=== PATIENT | male | born 1985 ===

== ENCOUNTER 2020-05-27 12:03 | Emergency (ER) | payer BC ==
--- NOTE | 2020-05-27 12:50 | CR ---
EXAMINATION: Fingers Fourth Digit Lt 3 views SEX: Male AGE: 34 years CLINICAL HISTORY: 34-year-old male "smashed" fourth (ring) finger at work. INTERPRETATION: Abnormal. 1. Mild soft tissue swelling. 2. *Acute, nondisplaced, corner FRACTURE radial aspect base of the distal phalanx, left fourth (4th) finger. Fracture line does not appear to extend into the adjacent DIP joint. 3. No sign of other fracture or dislocation this or adjacent digits of the left hand. 4. No foreign bodies. 5. No appreciable arthritic degenerative changes.
[2020-05-27] MEDS ORDERED: Diphtheria,Pertussis(Acell),Tetanus Vaccine 0.5 ML Syringe IM ONE (12:59)
--- NOTE | 2020-05-27 13:05 | EDM.PDOC ---
ED HPI GENERAL MEDICAL PROBLEM - General Chief Complaint: Upper Extremity Injury/Pain Stated Complaint: SMASHED FINGER AT WORK Time Seen by Provider: 05/27/20 12:55 Source of Information: Reports: Patient, RN, RN Notes Reviewed History Limitations: Reports: No Limitations - History of Present Illness INITIAL COMMENTS - FREE TEXT/NARRATIVE: Patient presents to the ED via personal vehicle with complaints of injury to his left, fourth digit. 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 He denies loss of motor or sensory function to the area. He has not taken any medications for the pain which he rates at a 5/10. Left Finger-Ring Pain Score (Numeric/FACES): 3 - Related Data Allergies Allergy/AdvReac Type Severity Reaction Status Date / Time No Known Allergies Allergy Verified 05/27/20 12:52 Home Meds: Home Meds . [No Known Home Meds] 05/27/20 [History] Social & Family History - Tobacco Use Tobacco Use Status *Q: Never Tobacco User - Caffeine Use Caffeine Use: Reports: Coffee - Recreational Drug Use Recreational Drug Use: No Review of Systems - Review of Systems Review Of Systems: Comprehensive ROS is negative, except as noted in HPI. ED EXAM, GENERAL - Physical Exam Exam: See Below Exam Limited By: No Limitations General Appearance: Alert, Anxious, Mild Distress Peripheral Pulses: 2+: Radial (L), Radial (R) Extremities: Normal Range of Motion, Normal Capillary Refill, Limited Range of Motion, Other (Pain to left fourth finger). No: Joint Swelling Neurological: Alert, Oriented, CN II-XII Intact, Normal Cognition, Normal Gait, No Motor/Sensory Deficits Psychiatric: Normal Affect, Anxious Skin Exam: Warm, Dry, Intact, Normal Color, No Rash, Erythema (To distal left fourth finger), Wound/Incision (4 cm superficial laceration to lateral aspect of left fourth finger). No: Ecchymosis, Mottled, Pallor, Petechiae ED TRAUMA EXTREMITY PROCEDURES - Laceration/Wound Repair Left Anterior Lateral Distal Digit - 4th (Ring) Lac/Wound Length In cm: 4 Appearance: Superficial, Linear, Clean Distal NVT: Neuro & Vascular Intact, No Tendon Injury Skin Prep: Chlorhexidine (Hibiciens) Exploration/Debridement/Repair: Wound Explored, In a Bloodless Field, Explored to Base, No Foreign Material Found, Wound Margins Revised Closed With: Dermabond Drain Placement: No Sterile Dressing Applied: Nurse Tetanus Status Addressed: Yes Complications: No Course - Vital Signs Last Recorded V/S: Last Vital Signs Temp 99.1 F 05/27/20 12:48 Pulse 66 05/27/20 12:48 Resp 15 05/27/20 12:48 BP 135/82 05/27/20 12:48 Pulse Ox 100 05/27/20 12:48 - Orders/Labs/Meds Orders: Active Orders 24 hr Category Date Time Status Vaccines to be Administered [RC] PER UNIT ROUTINE Care 05/27/20 12:59 Ordered Meds: Medications Discontinued Medications Generic Name Dose Route Start Last Admin Trade Name Freq PRN Reason Stop Dose Admin Diphtheria/Tetanus/Acell Pertussis 0.5 ml 05/27/20 12:59 Boostrix IM 05/27/20 13:00 .ONCE ONE - Re-Assessments/Exams Free Text/Narrative Re-Assessment/Exam: 05/27/20 Dermabond applied to clean, bloodless laceration without complications. TDap administered. Patient instructed to keep wound clean and dry. Did apply sterile dressing and splint to finger. Discussed follow up in clinic in two weeks. Patient instructed to utilize OTC analgesics, PRN, for pain. Departure - Departure Time of Disposition: 13:07 Disposition: Home, Self-Care 01 Condition: Good Clinical Impression: Fracture of distal phalanx of finger of left hand - Discharge Information *PRESCRIPTION DRUG MONITORING PROGRAM REVIEWED*: Not Applicable *COPY OF PRESCRIPTION DRUG MONITORING REPORT IN PATIENT BRITTANY: Not Applicable Additional Instructions: Drink plenty of water to stay hydrated. Keep splint on finger for two weeks; may remove to shower/clean hands. You may take ibuprofen (Advil/Motrin) 400mg every six hours for pain. You may take acetaminophen (Tylenol) 650mg every six hours for pain. You may stagger these medications so you are taking a dose of medication every three hours. Follow up with your primary care provider in two weeks, or with any worsening pain or swelling that does not improved with medication. Sepsis Event Note (ED) - Evaluation Sepsis Screening Result: No Definite Risk - Focused Exam Vital Signs: Vital Signs Temp Pulse Resp BP Pulse Ox 05/27/20 12:48 99.1 F 66 15 135/82 100 - My Orders Last 24 Hours: My Active Orders 05/27/20 12:59 Vaccines to be Administered [RC] PER UNIT ROUTINE - Assessment/Plan Last 24 Hours: My Active Orders 05/27/20 12:59 Vaccines to be Administered [RC] PER UNIT ROUTINE
== END 2020-05-27 13:17 | disposition home or self-care (01) ==
LOC: DL.ED 12:03
DX: S62.665A Nondisplaced fracture of distal phalanx of left ring finger, initial encounter for closed fracture (principal); Z23 Encounter for immunization; W23.0XXA Caught, crushed, jammed, or pinched between moving objects, initial encounter; Y99.0 Civilian activity done for income or pay
CPT/HCPCS: 12002; 73140-F3; 90471; 90715; 99283-25